=== PATIENT | male | born 1955 | race Caucasian/White ===

== ENCOUNTER 2022-01-09 19:48 | Emergency (ER) | payer OTHER, SELFPAY ==
[2022-01-09] MEDS ORDERED: Lidocaine 1% w/Epinephrine 1:100K 20 ML VIAL ONE (20:22)
[2022-01-09] MEDS ORDERED: Boostrix 0.5 ML (Tdap) VIAL ONE (20:22)
== END 2022-01-09 20:36 | disposition home or self-care (01) ==
LOC: BURERS 19:48
DX: S51.812A Laceration without foreign body of left forearm, initial encounter (principal); I50.9 Heart failure, unspecified; E78.5 Hyperlipidemia, unspecified; E78.00 Pure hypercholesterolemia, unspecified; F17.210 Nicotine dependence, cigarettes, uncomplicated; Z79.899 Other long term (current) drug therapy; Z23 Encounter for immunization; Z79.82 Long term (current) use of aspirin; W26.8XXA Contact with other sharp object(s), not elsewhere classified, initial encounter
CPT/HCPCS: 12002; 90471; 90715